=== PATIENT | female | born 1955 | race Caucasian/White ===

== ENCOUNTER → 2020-04-15 | Outpatient (CLI) | payer MEDICARE, SELFPAY ==
[~2020-04-15] MED LIST: ASPIRIN EC81 MG PO; CENTRUM SILVER1 EAC4 PO; FOSAMAX70 MG PO; LIPITOR TAB 2020 MG PO; LOPRESSOR 25 MG25 MG PO; MELATONIN3 MG PO; NEURONTIN 300300 MG PO; NORCO 5-325 TA1 EACH PO; PROTONIX40 MG PO; SYNTHROID 50 M50 MCG PO; TRAZODONE HCL50 MG PO; WELLBUTRIN XL150 MG PO
== END ==
LOC: ECHO 09:00
DX: I11.9 Hypertensive heart disease without heart failure (principal); R94.31 Abnormal electrocardiogram [ECG] [EKG]; I08.3 Combined rheumatic disorders of mitral, aortic and tricuspid valves; R93.1 Abnormal findings on diagnostic imaging of heart and coronary circulation
CPT/HCPCS: ECHO; 93306

== ENCOUNTER → 2021-06-24 | Outpatient (CLI) | payer MEDICARE | LOC: CT 08:52 | DX: R91.1 Solitary pulmonary nodule (principal) | CPT/HCPCS: 36415; 71270; 82565; 84520; Q9967 ==

== ENCOUNTER → 2021-10-17 | Outpatient (CLI) | payer MEDICARE | LOC: ECHO 09:21 | DX: R94.31 Abnormal electrocardiogram [ECG] [EKG] (principal) | CPT/HCPCS: ECHO; 36415; 71275; 82565; 84520; 93306; Q9967 ==